=== PATIENT | female | born 1995 | race Caucasian/White ===

== ENCOUNTER 2017-09-18 23:40 | Emergency (ER) | payer BC ==
[~2017-09-18] VITALS: Ht 167.6 cm; Wt 81.6 kg
[2017-09-18 23:41] VITALS: BP 148/90
[2017-09-18] MEDS ORDERED: LIDOCAINE-MPF 2% ,5ML ONE (23:55)
[2017-09-18] MEDS ORDERED: DIPH,PERTUSS(ACELL),TET VAC/PF 0.5 ML IM-VACC ONE (23:55)
[2017-09-19] MEDS ORDERED: LIDOCAINE 2%, 20ML SQ ONE
[2017-09-19] MEDS ORDERED: DIPH,PERTUSS(ACELL),TET VAC/PF 0.5 ML IM-VACC ONE
== END 2017-09-19 00:37 | disposition home or self-care (01) ==
LOC: ED 09-19 00:20
DX: S00.451A Superficial foreign body of right ear, initial encounter (principal); X58.XXXA Exposure to other specified factors, initial encounter; Y93.89 Activity, other specified; Y92.89 Other specified places as the place of occurrence of the external cause; Y99.8 Other external cause status
CPT/HCPCS: 90471; 90715; 99283; J3490

== ENCOUNTER 2018-06-17 23:12 | Emergency (ER) | payer BC ==
[~2018-06-17] VITALS: Ht 167.6 cm; Wt 81.7 kg
[2018-06-17 23:15] VITALS: BP 149/90
--- NOTE | 2018-06-17 23:59 | NUR ---
PT TO US AT THIS TIME.
[2018-06-18 00:39] LABS: BASOPHILS # (AUTO) 0.05 x10^3/uL (0-0.1); BASOPHILS % (AUTO) 0 % (0-1); EOSINOPHILS # (AUTO) 0.35 x10^3/uL (0-0.4); EOSINOPHILS % (AUTO) 3 % (1-7); LYMPHOCYTES # (AUTO) 3.28 x10^3/uL (1-3.4); LYMPHOCYTES % (AUTO) 23 % (22-44); MD NO; MEAN CORPUSCULAR HEMOGLOBIN 27.6 pg (27.0-34.8); MEAN CORPUSCULAR VOLUME 81.2 fL (80-100); MEAN PLATELET VOLUME 7.6 fL (7.4-10.4); MONOCYTES # (AUTO) 0.43 x10^3/uL (0.2-0.8); MONOCYTES % (AUTO) 3 % (2-9); NEUTROPHILS % (AUTO) 71 % (42-75); PLATELET COUNT 400 x10^3/uL (130-400); RED BLOOD COUNT 4.96 x10^6/uL (3.82-5.3); RED CELL DISTRIBUTION WIDTH 13.3 % (9.6-15.2)
[2018-06-18 00:44] LABS: CULTURE INDICATED? YES; MICROSCOPIC AUTO
[2018-06-18 00:50] LABS: ALANINE AMINOTRANSFERASE 22 U/L (12-78); ALBUMIN 3.8 g/dL (3.4-5.0); ANION GAP 6 mmol/L (5-15); CHLORIDE 107 mmol/L (98-107); CREATININE 0.61 mg/dL (0.55-1.02)
[2018-06-18 01:07] LABS: ALKALINE PHOSPHATASE 70 U/L (45-117); BILIRUBIN,TOTAL 0.1 mg/dL (0.2-1.0); TOTAL PROTEIN 8.2 g/dL (6.4-8.2)
--- NOTE | 2018-06-18 01:39 | NUR ---
LUNCH RN: PT RESTING IN [facility] AT THIS TIME. PT DENIES ANY NEEDS AT THIS TIME.
== END 2018-06-18 02:26 | disposition home or self-care (01) ==
LOC: ED 06-18 00:34
DX: O20.0 Threatened abortion (principal); O23.41 Unspecified infection of urinary tract in pregnancy, first trimester; Z3A.12 12 weeks gestation of pregnancy
CPT/HCPCS: 36415; 76801; 80053; 81001; 84702; 85025; 86901; 87086; 99284